=== PATIENT | male | born 1995 | race Caucasian/White ===

== ENCOUNTER 2020-02-17 13:34 | Emergency (ER) | payer BC, OTHER ==
--- NOTE | 2020-02-17 14:18 | UC ---
[facility] HPI HPI Summary: 24-year-old male has a visual telemedicine encounter 4-5 days of upper respiratory tract infection symptoms. Patient has had a fever. He did take ibuprofen which helped with the symptoms. Also had some mild body aches for 1 day. 4 days ago patient developed an ulcer on his lower lip. Has no history of HSV. Feels like his glands are swollen in his throat adjacent to where the ulcer is. Does make it mildly difficult to swallow however he is able to eat and drink. Also was slightly dizzy.. No shortness of breath no cough. Has had some ringing in the ears. He's been mildly tired but does not describe extreme fatigue. He was tested for Covid [address] [place] [address] testing station. Those results are still pending. No known contact with anybody with Covid 19. [facility] PMH Previously Healthy: Yes Respiratory History: Denies: Hx Asthma [facility] ROS All Other Systems Reviewed And Are Negative: Yes Positive: Fever Eyes: Negative Positive: Sore Throat Cardiovascular: Negative Respiratory: Negative Gastrointestinal: Negative Genitourinary: Negative Positive: Myalgia Psychological: Normal [facility] Telehealth Physical Exam: To decrease the risk of transmission of covert 19 patient was interviewed via visual telemedicine and phone. This does limit the physical examination. After discussing strep and influenza results I did put on PPE and went to the patient's car and was [id number] with the patient and swabbed his lower lip. Patient's in no acute distress. Appearance: Positive: Well-Appearing, Alert and Oriented Skin: Positive: Skin Color Reflects Adequate Perfusion Eyes: Positive: Normal ENT: Negative: Hoarse voice Neck: Positive: Supple Respiratory/Lung Sounds: Positive: Normal Respiratory Effort Cardiovascular: Positive: Skin Color Reflects Adequate Perfusion Musculoskeletal: Positive: Normal Tone Neurological: Positive: Other - awake alert appropriate interaction. Psychiatric: Positive: Normal [facility] Course/Dx Assessment/Plan: Because patient has no history of HSV and he does have an ulcer on his lower lip I swabbed the ulcer and sent it for HSV PCR. Also started the patient on Valtrex 1 g by mouth twice a day for 10 days. Discussed the strep and flu with the patient both were negative. At this time he will continue to treat symptomatically and follow up on his Covid testing that was done yesterday at the drive-through testing center. Also patient is to get reevaluated if not improving or worse. Provider Diagnoses: Pharyngitis, Upper respiratory infection, Lip ulcer [facility] Telehealth Disposition Provider Recommendation for Treatment: Home/Supportive Care Telehealth Visit: Patient Consented Verbally to Telehealth Visit Telehealth Patient Statement: The patient should understand that they are communicating with their provider via a secure communication platform and that all the same privacy and confidentiality rules apply. They will also be responsible for copayments or coinsurances that apply to any Telehealth visit. Patient Identifiers: 2 Patient Identifiers Verified for Telehealth Visit Telehealth Visit Start Time: 14:20 Telehealth Visit End Time: 15:05 Telehealth Provider Attestation: The above services were appropriate to provide in a Telehealth setting.
[2020-02-17 14:41] LABS: Influenza A Molecular Negative (Negative); Influenza B Molecular Negative (Negative)
== END 2020-02-17 15:10 | disposition home or self-care (01) ==
LOC: UCEAST 13:34
DX: J02.9 Acute pharyngitis, unspecified (principal); J06.9 Acute upper respiratory infection, unspecified; K13.0 Diseases of lips
CPT/HCPCS: 87529; 87651; 99213; G0463; Q3014